=== PATIENT | male | born 1975 | race Caucasian/White ===

== ENCOUNTER 2021-04-19 23:43 | Inpatient (IN) | payer MEDICARE, OTHER ==
[~2021-04-19] VITALS: Ht 182.9 cm; Wt 80.0 kg
[2021-04-20] MEDS ORDERED: SINEQUAN CAP 5050 MG PO (01:56)
[2021-04-20] MEDS ORDERED: GABAPENTIN800 MG PO (01:56)
[2021-04-20] MEDS ORDERED: LATUDA80 MG PO (01:57)
[2021-04-20] MEDS ORDERED: CHLORDIAZEPOXID25 MG PO (01:58)
[2021-04-20] MEDS ORDERED: ONDANSETRON ODT4 MG PO (01:58)
[2021-04-20] MEDS ORDERED: PROTONIX 40 MG40 M1 PO (01:58)
[2021-04-20 04:32] LABS: HEMOGLOBIN 14.1 gm/dl (14.0-17.5); RED BLOOD COUNT 4.27 M/UL (4.20-5.50); WHITE BLOOD COUNT 10.5 K/UL (4.5-11.0)
[2021-04-20 05:10] LABS: BUN/CREATININE RATIO 6 (0-10)
[2021-04-21 03:05] LABS: HEMOGLOBIN 12.9 gm/dl (14.0-17.5); RED BLOOD COUNT 3.86 M/UL (4.20-5.50); WHITE BLOOD COUNT 8.4 K/UL (4.5-11.0)
[2021-04-21] MEDS ORDERED: KEPPRA1000 MG PO (12:19)
== END 2021-04-21 14:15 | disposition home or self-care (01) | DRG 100 ==
LOC: CCU 23:43
PROVIDERS: Internal Medicine; ADMIT Internal Medicine
PROC: 4A10X4Z Monitoring of Central Nervous Electrical Activity, External Approach (ICD-10-PCS; principal; 2021-04-20)
DX: G40.909 Epilepsy, unspecified, not intractable, without status epilepticus (principal); G92 Toxic encephalopathy; N17.9 Acute kidney failure, unspecified; E87.2 Acidosis; Z20.822 Contact with and (suspected) exposure to COVID-19; M62.82 Rhabdomyolysis; F10.239 Alcohol dependence with withdrawal, unspecified; G43.909 Migraine, unspecified, not intractable, without status migrainosus; F32.9 Major depressive disorder, single episode, unspecified; F41.9 Anxiety disorder, unspecified; N18.30 Chronic kidney disease, stage 3 unspecified; I12.9 Hypertensive chronic kidney disease with stage 1 through stage 4 chronic kidney disease, or unspecified chronic kidney disease; E87.6 Hypokalemia; R00.0 Tachycardia, unspecified; K21.9 Gastro-esophageal reflux disease without esophagitis; M79.7 Fibromyalgia; G89.29 Other chronic pain; F17.200 Nicotine dependence, unspecified, uncomplicated; Z91.14 Patient's other noncompliance with medication regimen; Z93.0 Tracheostomy status; Z98.49 Cataract extraction status, unspecified eye; Z87.820 Personal history of traumatic brain injury; Z83.3 Family history of diabetes mellitus
CPT/HCPCS: 36415; 70450; 80048; 80053; 80307; 82550; 82553; 83605; 83735; 84100; 84132; 84484; 85025; 85027; 93005; 95819; C9113; J1650; J1953; J2060; J3411; J3475; J7030; J7040; U0002